=== PATIENT | male | born 1960 | race Caucasian/White ===

== ENCOUNTER 2021-07-07 11:55 | Outpatient (CLI) | payer OTHER | END 2021-07-07 11:56 | disposition home or self-care (01) | LOC: ULT 11:55 | PROVIDERS: ATTEND Specialist | DX: N28.9 Disorder of kidney and ureter, unspecified (principal) | CPT/HCPCS: 76770 ==

== ENCOUNTER 2023-11-22 08:58 | Outpatient (CLI) | payer OTHER ==
[2023-11-22] MEDS ORDERED: Iopamidol 370 76% 100 ML VIAL ONE (11:33)
== END 2023-11-22 08:59 | disposition home or self-care (01) ==
LOC: BICCT 08:58
PROVIDERS: ATTEND Internal Medicine
DX: R79.89 Other specified abnormal findings of blood chemistry (principal); K44.9 Diaphragmatic hernia without obstruction or gangrene; R16.1 Splenomegaly, not elsewhere classified
CPT/HCPCS: 74177; 82565; Q9967